=== PATIENT | male | born 1955 | race Caucasian/White ===

== ENCOUNTER 2017-08-16 17:56 | Emergency (ER) | payer MEDICAID, SELFPAY ==
[2017-08-16 17:57] VITALS: BP 156/94; PULSE 80; RESP 16; TEMP 36.7; O2SAT 96; BMI 33.3
--- NOTE | 2017-08-16 18:30 | RAD_ITS ---
XR Chest 2 Views INDICATION: BILAT LEG PAIN FOR THE PAST 2 YEARS AND HAS HAD ON AND OFF ISSUES WITH RT TESTICLE SWELLING. DAUGHTER STATES HE HAS ALL THE SX OF PHEOCHROMOCYTOMA (SHE WAS DIAGNOSED WITH IT RECENTLY, UNSURE IF GENETIC) COMPARISON: None FINDINGS: Heart size and pulmonary vascularity are within normal limits. The lungs appear mildly hyperinflated with coarsened interstitial markings. There is no evidence of focal air space consolidation or pleural effusion. Osseous structures are grossly unremarkable.. RAD/Chest PA and Lateral IMPRESSION: COPD. No radiographic evidence of acute intrathoracic disease. at 1954 Reported and signed by: Suly Up MD Electronically Signed: Suly Up MD at 18:50 EST Tel , Service support ,
--- NOTE | 2017-08-16 18:31 | EKG12_ITS ---
Test Reason : GEN ILLESS Blood Pressure : / mmHG Vent. Rate : 071 BPM Atrial Rate : 071 BPM P-R Int : 154 ms QRS Dur : 092 ms QT Int : 392 ms P-R-T Axes : 073 045 061 degrees QTc Int : 425 ms Normal sinus rhythm Normal ECG Confirmed by DL RENE, PILLO ([id number]), telegraph editor CORY RETANA ([id number]) on 08/19/2017 1:51:14 PM Referred By: JOSE MIGUEL Confirmed By:PILLO LIZAMA MD
--- NOTE | 2017-08-16 18:34 | ED.DCSUM_ITS ---
- ER Visit Summary Date of Service: 08/16/17 Chief Complaint: Bilateral leg swelling History of Present Illness: The patient is a 61 M he states that he has had bilateral leg swelling for years. He is to have a physician in [place] he is moving the [place] he is to get a new physician. He denies any history of cardiac disease. He denies any shortness of breath. Denies any kidney disease. Physical Examination: Well-appearing older male. Vital signs are stable afebrile. Pulse ox 96% on room air no signs of hypoxia. H EENT exam unremarkable. Neck nontender no JVD. Lungs clear to auscultation bilaterally. Heart regular rhythm no murmur. Abdomen soft and nontender. No organomegaly or masses. Normal bowel sounds. No peritoneal signs. He is moving all 4 extremities. They are neurovascularly intact. He does have 1+ pitting edema in both lower extremities. Equal and symmetrical. Calves are nontender no cords. Doubt any focal motor deficits. Test Results: X-ray AP lateral view showed no acute abnormality. Chronic changes. Normal cardiac silhouette. No congestive heart failure. No pleural effusions. EKG sinus rhythm rate is 71 and unchanged from prior EKG from June. CBC shows a white count of 6. H&H 12.4 and 38. BMP normal. Normal gap. Normal creatinine is 0.8. Emergency Department Course and Treatment: Male with acute on chronic pedal edema. Treatment Plan: She will be discharged home. I will see if he is on a diuretic if not I will prescribe him one. He has no primary care physician locally and I will have him follow-up with local physician. On repeat exam there is no change. Patient's daughter is in the room. She strongly believes this is a pheochromocytoma. She has been reading on the Internet. She gave me her cell phone which had information about that on it. I tried to explain to her that I did not feel this was a diagnosis. She became upset and stable condition requested I do further workup which I explained her would not be necessary today in emergency department.. Disposition: discharge Impression: Acute on chronic lower extremity edema This note was generated with [employer] dictation software. It may contain incorrect words, spelling, and punctuation that were not noted in review of the chart prior to signing ED Disposition - Plan for ED Patient: Disposition: Home or Assisted Living Chief Complaint: General Illness Instructions: ED Leg Swelling Bilateral Referrals: Care Physician,No Primary [Primary Care Provider] - Additional Instructions: Elevate legs to decrease swelling.
[2017-08-16 19:07] LABS: Absolute Lymphocyte Count 2.34 X10^3/ul (0.83-4.51); Absolute Neutrophil Count 3.2 X10^3/uL (2.0-7.7); Basophil# 0.02 X10^3/uL; Basophil% 0.3 % (0-1); Eosinophil# 0.38 X10^3/uL; Eosinophils% 5.6 % (0-5); Hematocrit 38.4 % (40-54); Hemoglobin 12.4 g/dl (13.0-16.5); Lymphocyte # 2.34 X10^3/ul (4.0); Lymphocyte % 34.5 % (19-41); Mean Corp Hgb Conc 32.3 g/gl (32-36); Mean Corpuscular Hgb 29.5 pg (27.0-32.0); Mean Corpuscular Volume 91.2 fL (80-94); Mean Platelet Vol. 9.3 fl (6.2-12.0); Monocyte# 0.82 X10^3/uL; Monocyte% 12.1 % (0-10); Neutrophil # 3.21 X10^3/uL (2.7-7.7); Neutrophil % 47.2 % (47-70); Platelet Count 209 K/mm3 (150-450); RBC Distribution Width CV 14.5 % (11.6-14.6); RBC Distribution Width SD 48.3 fl (35.1-43.9); Red Blood Count 4.21 M/mm3 (4.6-6.2); White Blood Count 6.8 K/mm3 (4.4-11.0)
[2017-08-16 19:12] LABS: POSITIVE COUNT NO; POSITIVE DIFFERENTIAL NO; POSITIVE MORPHOLOGY NO
[2017-08-16 19:18] LABS: Anion Gap 7 (5-15); BUN 13 mg/dL (7-18); Calcium,Total 8.2 mg/dL (8.5-10.1); Chloride 109 mmol/L (98-107); Creatinine, Serum 0.87 mg/dL (0.70-1.30); EST Glomerular Filtration Rate 94 mL/min (>60); Est Glom Filt Rate - Afr Amer 114 mL/min (>60); Estimated Creatinine Clearance 86.91 ml/min; Glucose 108 mg/dL (74-106); Potassium 4.1 mmol/L (3.5-5.1); Sodium Level 144 mmol/L (136-145)
--- NOTE | 2017-08-16 19:32 | ED.DEP ---
ED Disposition - Plan for ED Patient: Disposition: Home or Assisted Living Chief Complaint: General Illness Instructions: ED Leg Swelling Bilateral Referrals: Care Physician,No Primary [Primary Care Provider] - Additional Instructions: Elevate legs to decrease swelling.
[2017-08-16] MEDS: HYDROcodone Bitartrate/Apap 5/325 Tablet PO (19:50)
[2017-08-16 19:53] VITALS: PULSE 71; RESP 15; O2SAT 97
--- NOTE | 2017-08-16 20:20 | ED.RN ---
charge nurse was asked to talk to patients family at this time because family was upset with patient care and wanted to speak to the person in charge. Patient has been discharged home at this time and family is refusing to leave. Spoke with doctor who stressed that patient had medical condition known as pheochromocytoma and based on WebMD description the patient has this medical condition and we are not taking his care seriously. Explained to the family patient received lab work, ekg, medication, and xray and the doctor feels the patient is safe to go home and follow up with a primary care doctor. Patient is aware and agrees. Daughter still upset. Daughter given name for logistics loss prevention manager, and patient advocate. Patient is comfortable leaving at this time. advised if condition gets worse to return for follow up care.
--- NOTE | 2017-08-16 20:21 | ED.RN ---
REVIEWING DC INSTRUCTIONS WITH PATIENT. DAUGHTER WAS UPSET BECAUSE MORE TESTING WASN'T BEING DONE TO R/O ILLNESS SHE IS CONVINCED HER FATHER HAS CALLED PHEOCHROMOCYOMA. SHE HAD BEEN OBTAINING INFO ONLINE. DAUGHTER REQUESTING TO SPEAK TO SOMEONE. INFORMED NORTH CHARGE NURSE.
== END 2017-08-16 20:20 | disposition home or self-care (01) ==
PROVIDERS: Emergency Provider Emergency Medicine
DX: R60.0 Localized edema (principal); Z87.891 Personal history of nicotine dependence
CPT/HCPCS: 71046; 80048; 85025; 93005; 99285; A4216

== ENCOUNTER 2017-11-08 20:52 | Observation (INO) | payer MEDICAID, SELFPAY ==
[2017-11-08 20:57] VITALS: PULSE 71; BMI 35.1
[2017-11-08 21:11] VITALS: BMI 35.1
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
[2017-11-08 21:24] VITALS: TEMP 36.7
--- NOTE | 2017-11-08 21:25 | VDLE_ITS ---
Reason For Study: Elevated D-dimer RIGHT LEFT GSV is normal. GSV is normal. CFV is compressible, spontaneous, phasic, CFV is compressible, spontaneous, phasic, competent and demonstrates normal competent, and demonstrates normal augmentation. augmentation. FV is compressible, spontaneous, phasic, FV is compressible, spontaneous, phasic, competent and demonstrates normal competent and demonstrates normal augmentation. augmentation. POP V is compressible, spontaneous, phasic, POP V is compressible, spontaneous, phasic, competent and demonstrates normal competent and demonstrates normal augmentation. augmentation. T/P Trunk is compressible. T/P Trunk is compressible. PTV is compressible. PTV is compressible. RT PerV is compressible. LT PerV is compressible. Procedure Exam performed portable in patient room. A preliminary report was called and/or faxed to Kathy GAXIOLA. Interpretation Summary Deep veins of the lower extremities are bilaterally patent and compressible segmentally. There is no evidence of deep vein thrombosis on either side. Valvular competence appears intact within the proximal deep venous systems bilaterally. The greater saphenous veins appear bilaterally patent and compressible segmentally. Ordering Physician: Wilfrido Eli Performed By: Shruti Kaufman, ANDREY, RVT
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
--- NOTE | 2017-11-08 21:27 | EKG12_ITS ---
Test Reason : CP Blood Pressure : / mmHG Vent. Rate : 063 BPM Atrial Rate : 063 BPM P-R Int : 164 ms QRS Dur : 098 ms QT Int : 398 ms P-R-T Axes : 075 046 057 degrees QTc Int : 407 ms Sinus rhythm with Premature atrial complexes Otherwise normal ECG When compared with ECG of 16-AUG-2017 18:39, Premature atrial complexes are now Present Confirmed by DL RENE, PILLO ([id number]), digital editor CORY RETANA ([id number]) on 11/10/2017 3:21:24 PM Referred By: ELLIS Confirmed By:PILLO LIZAMA MD
[2017-11-08 22:00] VITALS: PULSE 71; RESP 15
[2017-11-08] MEDS: Atorvastatin Calcium 40 MG Tablet PO (22:47)
[2017-11-08] MEDS: Aspirin 81 MG TAB.CHEW 324 MG PO (22:47)
[2017-11-08 23:07] VITALS: BP 166/87; PULSE 74
[2017-11-08] MEDS: Metoprolol Tartrate 25 MG Tablet 12.5 MG PO (23:07)
[2017-11-09] VITALS (16 sets, daily range): BP systolic 108–149; BP diastolic 57–82; PULSE 62–83; RESP 15–18; TEMP 36.7–36.9; O2SAT 94–100
[2017-11-09 04:18] LABS: Hematocrit 39.9 % (40-54); Hemoglobin 12.8 g/dl (13.0-16.5); Mean Corp Hgb Conc 32.1 g/gl (32-36); Mean Corpuscular Hgb 28.6 pg (27.0-32.0); Mean Corpuscular Volume 89.3 fL (80-94); Mean Platelet Vol. 9.6 fl (6.2-12.0); Platelet Count 192 K/mm3 (150-450); RBC Distribution Width CV 13.6 % (11.6-14.6); RBC Distribution Width SD 43.9 fl (35.1-43.9); Red Blood Count 4.47 M/mm3 (4.6-6.2); White Blood Count 7.3 K/mm3 (4.4-11.0)
[2017-11-09 04:19] LABS: Scan Indicated on CBC? Y/N NO
[2017-11-09 04:22] LABS: Prothrombin Time (Protime)PT. 13.6 SECONDS (11.7-14.9)
[2017-11-09 04:33] LABS: Partial Thromboplast Time 30.9 Seconds (24.1-36.2)
[2017-11-09 04:36] LABS: D-Dimer Quantitative (DVT/PE) 0.61 FEU/ug/m (0.27-0.49)
[2017-11-09 04:52] LABS: BNP,B-Type NATRIURETIC PEPTIDE 35.4 pg/mL (0-100)
[2017-11-09 04:56] LABS: AST(SGOT) 24 U/L (15-37); Alanine Aminotransfer ALT/SGPT 35 U/L (16-61); Albumin, Serum 3.3 g/dL (3.2-5.0); Alkaline Phosphatase 78 U/L (45-117); Anion Gap 8 (5-15); BUN 14 mg/dL (7-18); BUN/Creat Ratio 16.1 RATIO (10-20); Calcium,Total 8.4 mg/dL (8.5-10.1); Chloride 107 mmol/L (98-107); Cholesterol 132 mg/dL (200); Creatinine, Serum 0.87 mg/dL (0.70-1.30); EST Glomerular Filtration Rate 94 mL/min (>60); Est Glom Filt Rate - Afr Amer 113 mL/min (>60); Estimated Creatinine Clearance 88.57 ml/min; Globulin 3.3 g/dL (2.2-4.2); Glucose 91 mg/dL (74-106); High Density Lipoprotein 48 mg/dL; Potassium 3.9 mmol/L (3.5-5.1); Protein, Total 6.6 g/dL (6.4-8.2); Sodium Level 145 mmol/L (136-145); Thyroid Stim Hormone (TSH) 5.35 uIU/mL (0.358-3.74); Triglycerides 78 mg/dL; Very Low Density Lipoprotein 16 mg/dL (5-40)
--- NOTE | 2017-11-09 05:17 | NURSING ---
DR SANCHEZ AWARE OF AM LAB RESULTS: D DIMER 0.61, TSH 5.35.
[2017-11-09] MEDS: 0.9% NaCl Peripheral Flush Adult/Peds IV ×2 (05:52→13:12)
[2017-11-09] MEDS: Aspirin E.C. 81 MG Tablet PO (05:52)
[2017-11-09] MEDS: Lisinopril 10 MG Tablet PO (05:52)
--- NOTE | 2017-11-09 05:55 | ECHOD_ITS ---
Reason For Study: CHEST PAIN Procedure This was a 2D Doppler, Color Flow transthoracic echocardiogram. Contrast injection was performed. The study was technically difficult. Exam performed portable in patient room. Left Ventricle Normal LV size. Left ventricular systolic function is normal. Segmental dysfunction with preserved ejection fraction (see wall motion). Transmitral diastolic flow velocities suggest mild (stage 1) diastolic dysfunction (reversed pattern). Mid-Posterior: Mildly hypokinetic. Mid-Inferior: Hypokinetic. Infero-Basal: Hypokinetic. Posterior-Basal: Hypokinetic. The rest of the wall segments are normal. Right Ventricle Normal RV size. Normal systolic function. Atria Normal left atrium. Normal right atrium. Mitral Valve Normal mitral valve. Tricuspid Valve Normal tricuspid valve. Mild (1+) tricuspid valve insufficiency. Pulmonary artery systolic pressure is 24 mmHg. Aortic Valve Normal aortic valve. Pulmonic Valve Normal pulmonic valve. Great Vessels Normal aortic root. The pulmonary artery is normal size. Normal inferior vena cava. Pericardium/Pleural No pericardial effusion. Medication Diluted definity 4ml given slow IV push to enhance endocardial definition. MMode/2D Measurements & Calculations LVIDd: 5.4 cm IVSd: 0.86 cm Ao root diam: 3.3 cm LVIDs: 4.1 cm LVPWd: 1.1 cm LA dimension: 3.3 cm RVDd: 4.0 cm FS: 24.6 % LAV(MOD-bp): 46.0 ml EDV(MOD-sp4): 184.8 ml EDV(MOD-sp2): 114.8 ml LAV(MOD-bp) Indexed: 20.3 ml/m2 ESV(MOD-sp4): 59.8 ml EF(MOD-sp2): 41.6 % LAV(MOD-sp2): 66.6 ml EF(MOD-sp4): 67.7 % LAV(MOD-sp4): 30.8 ml SV(MOD-sp4): 125.0 ml SV(MOD-sp2): 47.7 ml LA A4 area: 12.8 cm2 RA A4 area: 14.8 cm2 Doppler Measurements & Calculations MV E max lucio: 63.3 cm/sec Lat Peak E' Lucio: 9.8 cm/sec Med Peak E' Lucio: 8.0 cm/sec MV A max lucio: 83.5 cm/sec E/E' lat: 6.4 E/E' med: 7.9 MV E/A: 0.76 Ao V2 max: 112.9 cm/sec LV V1 max: 95.6 cm/sec TR max lucio: 223.6 cm/sec Ao max P.1 mmHg LV V1 max P.7 mmHg TR max P.0 mmHg Interpretation Summary Normal LV size. Left ventricular systolic function is normal. Segmental dysfunction with preserved ejection fraction (see wall motion). Transmitral diastolic flow velocities suggest mild (stage 1) diastolic dysfunction (reversed pattern). Contrast injection was performed. Ordering Physician: Wilfrido Eli Performed By: Patty Brooks RDCS, RVT
--- NOTE | 2017-11-09 05:55 | EKG12_ITS ---
Test Reason : AM EKG Blood Pressure : / mmHG Vent. Rate : 064 BPM Atrial Rate : 064 BPM P-R Int : 154 ms QRS Dur : 098 ms QT Int : 408 ms P-R-T Axes : 069 046 057 degrees QTc Int : 420 ms Normal sinus rhythm Normal ECG When compared with ECG of 08-NOV-2017 21:32, MANUAL COMPARISON REQUIRED, DATA IS UNCONFIRMED Confirmed by DL RENE, PILLO ([id number]), industrial editor CORY RETANA ([id number]) on 11/10/2017 3:18:53 PM Referred By: WENDY Confirmed By:PILLO LIZAMA MD
--- NOTE | 2017-11-09 07:09 | PCM.PROGNOTE ---
Patient Problems: Active and Suspected Problems Non-compliant behavior (Acute) COPD (chronic obstructive pulmonary disease) (Acute) Edema (Acute) Chest pain (Acute) Subjective: The patient is a 62-year-old male with a past medical history of COPD, non-compliance with meds/follow up and hypertension who was transferred to [facility] on 11/08/2017 from [place] emergency room with a complaint of chest pain and leg swelling. He related to the night hospitalist that he has had chest pain for several years. Vital signs at admission were temperature 98, pulse rate 62-74, blood pressure 166/87 respiratory rate of 15 with pulse ox of 95% on room air. CBC was significant for a mildly decreased hemoglobin at 12.8 with normochromic normocytic indices and a normal RDW. A d-dimer was increased at 0.61. BMP was unremarkable. Troponin was less than 0.015 and TSH was mildly increased at 5.35. - Physical Exam Vital Signs Temp Pulse Resp BP Pulse Ox 98.4 F 63 15 108/58 L 94 11/09/17 03:00 11/09/17 05:43 11/09/17 05:43 11/09/17 05:43 11/09/17 05:43 Oxygen Delivery Method Room Air Weight: 244 lb 14.937 oz Body Mass Index (BMI) 35.1 Intake and Output for Last 24 Hours 11/07/17 11/08/17 11/09/17 23:59 23:59 23:59 Intake Total 300 / 300 Balance 300 / 300 Laboratory Tests Past 24 Hrs 11/08/17 11/09/17 11/09/17 21:45 00:32 03:38 WBC 7.3 RBC 4.47 L Hgb 12.8 L Hct 39.9 L MCV 89.3 MCH 28.6 MCHC 32.1 RDW 13.6 RDW Differential 43.9 Plt Count 192 MPV 9.6 PT INR APTT D-Dimer Quant (PE/DVT) Sodium Potassium Chloride Carbon Dioxide Anion Gap BUN Creatinine Estim Creat Clear Calc Est GFR (MDRD) Af Amer Est GFR (MDRD) Non-Af BUN/Creatinine Ratio Glucose Calcium Total Bilirubin AST ALT Alkaline Phosphatase Troponin I < 0.015 < 0.015 B-Natriuretic Peptide Total Protein Albumin Globulin Albumin/Globulin Ratio Triglycerides Cholesterol LDL Cholesterol VLDL Cholesterol HDL Cholesterol TSH 11/09/17 11/09/17 11/09/17 03:38 03:38 03:38 WBC RBC Hgb Hct MCV MCH MCHC RDW RDW Differential Plt Count MPV PT 13.6 INR 1.0 APTT 30.9 D-Dimer Quant (PE/DVT) 0.61 H* Sodium Cancelled Potassium Cancelled Chloride Cancelled Carbon Dioxide Cancelled Anion Gap Cancelled BUN Cancelled Creatinine Cancelled Estim Creat Clear Calc Cancelled Est GFR (MDRD) Af Amer Cancelled Est GFR (MDRD) Non-Af Cancelled BUN/Creatinine Ratio Cancelled Glucose Cancelled Calcium Cancelled Total Bilirubin Cancelled AST Cancelled ALT Cancelled Alkaline Phosphatase Cancelled Troponin I B-Natriuretic Peptide 35.4 Total Protein Cancelled Albumin Cancelled Globulin Cancelled Albumin/Globulin Ratio Cancelled Triglycerides Cancelled Cholesterol Cancelled LDL Cholesterol Cancelled VLDL Cholesterol Cancelled HDL Cholesterol Cancelled TSH Cancelled 11/09/17 03:38 WBC RBC Hgb Hct MCV MCH MCHC RDW RDW Differential Plt Count MPV PT INR APTT D-Dimer Quant (PE/DVT) Sodium 145 Potassium 3.9 Chloride 107 Carbon Dioxide 30.0 Anion Gap 8 BUN 14 Creatinine 0.87 Estim Creat Clear Calc 88.57 Est GFR (MDRD) Af Amer 113 Est GFR (MDRD) Non-Af 94 BUN/Creatinine Ratio 16.1 Glucose 91 Calcium 8.4 L Total Bilirubin 0.20 AST 24 ALT 35 Alkaline Phosphatase 78 Troponin I < 0.015 B-Natriuretic Peptide Total Protein 6.6 Albumin 3.3 Globulin 3.3 Albumin/Globulin Ratio 1.0 Triglycerides 78 Cholesterol 132 LDL Cholesterol 68 VLDL Cholesterol 16 HDL Cholesterol 48 TSH 5.35 H Medical Necessity - Tobacco Use Smoking Status: Current every day smoker Tobacco Use: Cigarettes Assessment/Plan Active and Suspected Problems Non-compliant behavior (Acute) COPD (chronic obstructive pulmonary disease) (Acute) Edema (Acute) Chest pain (Acute)
--- NOTE | 2017-11-09 07:13 | CT_ITS ---
STUDY: CTA CHEST REASON FOR EXAM: Male, 62 years old. Elevated d-dimer. Chest pain. Swelling of both lower extremities. RADIATION DOSAGE (If Supplied By Facility): CTDIvol = ( 16.67 ) mGy, DLP = ( 790.68 ) mGycm TECHNIQUE: The examination was performed with the intravenous administration of 100 ml of Isovue 370 contrast material. Post-processing of the angiographic images was performed, with multiplanar reformation and 3D reconstruction. Individualized dose optimization techniques were used for this CT. COMPARISON: None. FINDINGS: Normal enhancement of the main pulmonary artery and right and left pulmonary arteries. Normal enhancement of the bilateral peripheral pulmonary arteries. There is no demonstrated pulmonary embolism. Normal thoracic aorta and visualized great vessels. There is no demonstrated aortic dissection. Normal heart and pericardium. Normal mediastinum. Normal hilar regions. Normal visualized trachea and bronchi. Hyperinflation. Diffuse emphysematous changes with cystic changes worse in the upper lobes. Focal area of scarring and/or atelectasis in the lingular segment of the left upper lobe with thickening of the left major fissure. Calcified granuloma in the right lower lobe. Normal pleura. Normal chest wall structures. There are degenerative changes of thoracic spine. Small hiatal hernia. CT/CTA Chest W/WO Contrast IMPRESSION: Hyperinflation. Emphysematous changes. Findings suggest probable scarring in the lingular segment of the left upper lobe. There is no evidence of pulmonary embolism. Electronically Signed: Jori Segura MD at 9:12 EDT Tel [phone], Service support ,
--- NOTE | 2017-11-09 07:14 | PN_ITS ---
Patient Problems: Active and Suspected Problems Non-compliant behavior (Acute) COPD (chronic obstructive pulmonary disease) (Acute) Edema (Acute) Chest pain (Acute) Subjective: The patient is a 62-year-old male with a past medical history of COPD, non- compliance with meds/follow up and hypertension who was transferred to [facility] on 11/08/2017 from [place] emergency room with a complaint of chest pain and leg swelling. He related to the night hospitalist that he has had chest pain for several years. Vital signs at admission were temperature 98 , pulse rate 62-74, blood pressure 166/87 respiratory rate of 15 with pulse ox of 95% on room air. CBC was significant for a mildly decreased hemoglobin at 12.8 with normochromic normocytic indices and a normal RDW. A d-dimer was increased at 0.61. BMP was unremarkable. Troponin was less than 0.015 and TSH was mildly increased at 5.35. - Physical Exam Vital Signs Temp Pulse Resp BP Pulse Ox 98.4 F 63 15 108/58 L 94 11/09/17 03:00 11/09/17 05:43 11/09/17 05:43 11/09/17 05:43 11/09/17 05:43 Oxygen Delivery Method Room Air Weight: 244 lb 14.937 oz Body Mass Index (BMI) 35.1 Intake and Output for Last 24 Hours 11/07/17 11/08/17 11/09/17 23:59 23:59 23:59 Intake Total 300 / 300 Balance 300 / 300 Laboratory Tests Past 24 Hrs 11/08/17 11/09/17 11/09/17 21:45 00:32 03:38 WBC 7.3 RBC 4.47 L Hgb 12.8 L Hct 39.9 L MCV 89.3 MCH 28.6 MCHC 32.1 RDW 13.6 RDW Differential 43.9 Plt Count 192 MPV 9.6 PT INR APTT D-Dimer Quant (PE/DVT) Sodium Potassium Chloride Carbon Dioxide Anion Gap BUN Creatinine Estim Creat Clear Calc Est GFR (MDRD) Af Amer Est GFR (MDRD) Non-Af BUN/Creatinine Ratio Glucose Calcium Total Bilirubin AST ALT Alkaline Phosphatase Troponin I < 0.015 < 0.015 B-Natriuretic Peptide Total Protein Albumin Globulin Albumin/Globulin Ratio Triglycerides Cholesterol LDL Cholesterol VLDL Cholesterol HDL Cholesterol TSH 11/09/17 11/09/17 11/09/17 03:38 03:38 03:38 WBC RBC Hgb Hct MCV MCH MCHC RDW RDW Differential Plt Count MPV PT 13.6 INR 1.0 APTT 30.9 D-Dimer Quant (PE/DVT) 0.61 H* Sodium Cancelled Potassium Cancelled Chloride Cancelled Carbon Dioxide Cancelled Anion Gap Cancelled BUN Cancelled Creatinine Cancelled Estim Creat Clear Calc Cancelled Est GFR (MDRD) Af Amer Cancelled Est GFR (MDRD) Non-Af Cancelled BUN/Creatinine Ratio Cancelled Glucose Cancelled Calcium Cancelled Total Bilirubin Cancelled AST Cancelled ALT Cancelled Alkaline Phosphatase Cancelled Troponin I B-Natriuretic Peptide 35.4 Total Protein Cancelled Albumin Cancelled Globulin Cancelled Albumin/Globulin Ratio Cancelled Triglycerides Cancelled Cholesterol Cancelled LDL Cholesterol Cancelled VLDL Cholesterol Cancelled HDL Cholesterol Cancelled TSH Cancelled 11/09/17 03:38 WBC RBC Hgb Hct MCV MCH MCHC RDW RDW Differential Plt Count MPV PT INR APTT D-Dimer Quant (PE/DVT) Sodium 145 Potassium 3.9 Chloride 107 Carbon Dioxide 30.0 Anion Gap 8 BUN 14 Creatinine 0.87 Estim Creat Clear Calc 88.57 Est GFR (MDRD) Af Amer 113 Est GFR (MDRD) Non-Af 94 BUN/Creatinine Ratio 16.1 Glucose 91 Calcium 8.4 L Total Bilirubin 0.20 AST 24 ALT 35 Alkaline Phosphatase 78 Troponin I < 0.015 B-Natriuretic Peptide Total Protein 6.6 Albumin 3.3 Globulin 3.3 Albumin/Globulin Ratio 1.0 Triglycerides 78 Cholesterol 132 LDL Cholesterol 68 VLDL Cholesterol 16 HDL Cholesterol 48 TSH 5.35 H Medical Necessity - Tobacco Use Smoking Status: Current every day smoker Tobacco Use: Cigarettes Assessment/Plan Active and Suspected Problems Non-compliant behavior (Acute) COPD (chronic obstructive pulmonary disease) (Acute) Edema (Acute) Chest pain (Acute)
[2017-11-09] MEDS: Metoprolol Tartrate 25 MG Tablet 12.5 MG PO ×2 (13:12→22:50)
[2017-11-09] MEDS: Acetaminophen 325 MG Tablet 650 MG PO (13:12)
[2017-11-09] MEDS: Furosemide 40 MG/4 ML Vial IV (13:12)
--- NOTE | 2017-11-09 13:17 | STRESSREP ---
Stress Test Report Pharmacologic myocardial perfusion stress test. 62-year-old man with a history of atypical chest pain. Medications Lipitor Lasix Zestril Lopressor. Stress protocol: Resting EKG demonstrates sinus rhythm with a rate of 64 bpm normal intervals and noted resting blood pressure is 172/92 mmHg. 0.4 mg regadenoson was infused per usual protocol followed by rapid intravenous saline flush injection continuous EKG monitoring was performed. The maximum heart rate attained was 89 bpm which was 7% of maximum predicted heart rate. The maximum workload was 1 metabolic equivalent. At rest there were no ST or T-wave changes noted suggest abnormal flow reserve at peak infusion no ST or T-wave changes were noted suggest abnormal flow reserve. The resting blood pressure was 172/92 with a final blood pressure 150/88 mmHg. Myocardial perfusion protocol. 15.0 mCi of technetium 99m sestamibi was injected at rest. 0.4 mg of regadenoson was infused per usual protocol. Peak infusion 45.0 mCi of technetium 99m sestamibi was injected stress images were obtained stress and rest images were reconstructed and compared in the short axis vertical long and horizontal long axis. Gated images were also obtained pre- Perfusion SPECT analysis: Review of the stress images demonstrate normal uptake of tracer noted in the septum anterior wall and lateral wall. There is a large defect noted involving the inferior wall from base to apex. The resting images demonstrate minimal improvement. The above is suggestive of a previous inferior infarct with mild robe-infarct ischemia.There is motion artifact noted as well as GI attenuation artifact and this could account for some of the findings Gated SPECT analysis: The gated ejection fraction is 55%. Conclusion: Pharmacologic myocardial perfusion stress test with evidence of previous inferior infarct Mild inferior ischemia cannot be completely excluded.
--- NOTE | 2017-11-09 13:41 | PN_ITS ---
Patient Problems: Active and Suspected Problems Non-compliant behavior (Acute) COPD (chronic obstructive pulmonary disease) (Acute) Edema (Acute) Chest pain (Acute) Subjective: Pt resting comfortably in bed s/p stress test. He denied having cp or SOB during stress this AM. Denies CP today. He states he did have left anterior chest wall pain without radiation on admission, and that he has been having this intermittently for at least a month. His major concern is the swelling of his legs. He denies hx of blood clots. He denies SOB/wheezing/cough. He is a prior smoker, quit in may but smoked his whole life. He has other complaints including a fluctuant right inguinal hernia and mid lumbar back pain radiating down his right leg. He also has leg pain when walking. - Physical Exam General: Alert, Oriented x3, Cooperative HEENT: Atraumatic, PERRLA, EOMI, Normocephalic Neck: Supple, No JVD, Negative Carotid Bruits Lungs: Clear to auscultation, Normal air movement Cardiovascular: Regular rate, No murmurs Abdomen: Bowel Sounds Present, Soft, Non Tender Extremities: No edema, Capillary Refill Less than 3 Seconds Skin: No rashes, No breakdown Musculoskeletal: No Tenderness to Palpation of Joints or Extremities Neurological: Cranial nerves II-XII grossly intact Psych/Mental Status: Normal Affect, Appropriate, Alert and oriented to time, place, person, mood and affect Vital Signs Temp Pulse Resp BP Pulse Ox 98.2 F 65 18 149/77 H 98 11/09/17 13:10 11/09/17 13:12 11/09/17 13:10 11/09/17 13:10 11/09/17 13:10 Oxygen Delivery Method Room Air Weight: 111.1 kg Body Mass Index (BMI) 35.1 Intake and Output for Last 24 Hours 11/07/17 11/08/17 11/09/17 23:59 23:59 23:59 Intake Total 300 / 300 Balance 300 / 300 Laboratory Tests Past 24 Hrs 11/08/17 11/09/17 11/09/17 21:45 00:32 03:38 WBC 7.3 RBC 4.47 L Hgb 12.8 L Hct 39.9 L MCV 89.3 MCH 28.6 MCHC 32.1 RDW 13.6 RDW Differential 43.9 Plt Count 192 MPV 9.6 PT INR APTT D-Dimer Quant (PE/DVT) Sodium Potassium Chloride Carbon Dioxide Anion Gap BUN Creatinine Estim Creat Clear Calc Est GFR (MDRD) Af Amer Est GFR (MDRD) Non-Af BUN/Creatinine Ratio Glucose Calcium Total Bilirubin AST ALT Alkaline Phosphatase Troponin I < 0.015 < 0.015 B-Natriuretic Peptide Total Protein Albumin Globulin Albumin/Globulin Ratio Triglycerides Cholesterol LDL Cholesterol VLDL Cholesterol HDL Cholesterol TSH Free T4 11/09/17 11/09/17 11/09/17 03:38 03:38 03:38 WBC RBC Hgb Hct MCV MCH MCHC RDW RDW Differential Plt Count MPV PT 13.6 INR 1.0 APTT 30.9 D-Dimer Quant (PE/DVT) 0.61 H* Sodium Cancelled Potassium Cancelled Chloride Cancelled Carbon Dioxide Cancelled Anion Gap Cancelled BUN Cancelled Creatinine Cancelled Estim Creat Clear Calc Cancelled Est GFR (MDRD) Af Amer Cancelled Est GFR (MDRD) Non-Af Cancelled BUN/Creatinine Ratio Cancelled Glucose Cancelled Calcium Cancelled Total Bilirubin Cancelled AST Cancelled ALT Cancelled Alkaline Phosphatase Cancelled Troponin I B-Natriuretic Peptide 35.4 Total Protein Cancelled Albumin Cancelled Globulin Cancelled Albumin/Globulin Ratio Cancelled Triglycerides Cancelled Cholesterol Cancelled LDL Cholesterol Cancelled VLDL Cholesterol Cancelled HDL Cholesterol Cancelled TSH Cancelled Free T4 11/09/17 11/09/17 03:38 03:38 WBC RBC Hgb Hct MCV MCH MCHC RDW RDW Differential Plt Count MPV PT INR APTT D-Dimer Quant (PE/DVT) Sodium 145 Potassium 3.9 Chloride 107 Carbon Dioxide 30.0 Anion Gap 8 BUN 14 Creatinine 0.87 Estim Creat Clear Calc 88.57 Est GFR (MDRD) Af Amer 113 Est GFR (MDRD) Non-Af 94 BUN/Creatinine Ratio 16.1 Glucose 91 Calcium 8.4 L Total Bilirubin 0.20 AST 24 ALT 35 Alkaline Phosphatase 78 Troponin I < 0.015 B-Natriuretic Peptide Total Protein 6.6 Albumin 3.3 Globulin 3.3 Albumin/Globulin Ratio 1.0 Triglycerides 78 Cholesterol 132 LDL Cholesterol 68 VLDL Cholesterol 16 HDL Cholesterol 48 TSH 5.35 H Free T4 0.70 L Medical Necessity - Tobacco Use Smoking Status: Current every day smoker Tobacco Use: Cigarettes Assessment/Plan Active and Suspected Problems Non-compliant behavior (Acute) COPD (chronic obstructive pulmonary disease) (Acute) Edema (Acute) Chest pain (Acute) 1. Chest pain - neg. trop. neg ekg. Questionable stress test. Consult cardiology. Risk factors include age, htn, smoking hx, obesity. Continue [place], bb , asa. LDL at goal. D dimer elevated but CTA negative. Echocardiogram pending. 2. Hypothyroidism - start synthroid 3. LE edema - suspect PVD. BNP negative. LE venous duplex negative. DC IV lasix. [place] wrap. Start low dose HCTZ. 4. Nicotine abuse - in remission 5. Obesity - dietary consult. 6. Mild normocytic anemia - trend. 7. Htn - started on multiple agents this admission. Trend. DVT ppx: lovenox DC planning: cardiology consult pending for abnormal stress test. This patient was seen by Wander Kuo PA-C under the supervision of Doctor Lozano.
[2017-11-09] MEDS: Enoxaparin 40 MG/0.4 ML Syringe SC (17:48)
--- NOTE | 2017-11-09 18:11 | PCM.CONS.C ---
Reason for Consult Date of Consultation: 11/09/17 Reason for Consultation: Chest discomfort and abnormal stress test History of Present Illness: The patient is a 62-year-old male with a past medical history of COPD, non-compliance with meds/follow up and hypertension who was transferred to [facility] on 11/08/2017 from [place] emergency room with a complaint of chest pain and leg swelling. He related to the night hospitalist that he has had chest pain for several years. Vital signs at admission were temperature 98, pulse rate 62-74, blood pressure 166/87 respiratory rate of 15 with pulse ox of 95% on room air. CBC was significant for a mildly decreased hemoglobin at 12.8 with normochromic normocytic indices and a normal RDW. A d-dimer was increased at 0.61. BMP was unremarkable. Troponin was less than 0.015 and TSH was mildly increased at 5.35. He was admitted to the telemetry unit and underwent a pharmacologic myocardial perfusion stress test which demonstrated evidence of previous inferior myocardial infarction with mild reversibility suggesting ischemia. He did have significant GI attenuation artifact as well as motion artifact and this could potentially account for the findings. On the basis of the above however cardiology was called to evaluate him. [] Past Medical History Allergies/Adverse Reactions: Allergies No Known Allergies Allergy (Verified 11/08/17 21:21) Home Medications: Ambulatory Orders Medication Instructions Recorded NK [NK] 08/16/17 Past Medical History (Chronic Problems): Chronic Problems HTN (hypertension) (Chronic) Surgical History: no surgical history Psychiatric History: No pertinent psych hx Lives: Alone Smoking Status: Current every day smoker Tobacco Use: Cigarettes Alcohol: None Drugs: None Review of Systems - Review of Systems General: Denies: Fever, Night Sweats, Fatigue Cardiovascular: Reports: Chest Discomfort, Chest Discomfort at Rest, Chest Discomfort with Exertion. Denies: Shortness of Breath, Orthopnea, PND, Peripheral Edema, Palpitations, Lightheadedness, Dizziness, Near Syncope, Syncope Respiratory: Denies: Cough, Sputum Production, Hemoptysis Gastrointestinal: Denies: Hematemesis, Hematochezia, Melena Genitourinary: Denies: Dysuria, Hematuria Skin: Denies: Rash Subjectve: Middle-aged gentleman in no apparent distress Objective: Vital Signs Temp Pulse Resp BP Pulse Ox 98.0 F 68 18 134/73 H 99 11/09/17 13:40 11/09/17 16:54 11/09/17 13:40 11/09/17 13:40 11/09/17 13:40 Oxygen Delivery Method Room Air Weight: 244 lb 14.937 oz Body Mass Index (BMI) 35.1 Intake and Output for Last 24 Hours 11/07/17 11/08/17 11/09/17 23:59 23:59 23:59 Intake Total 300 / 300 Balance 300 / 300 General: Awake, Alert, Oriented x 3 HEENT: PERRL, EOMI, Sclera Non Icteric Neck: Supple, Good ROM, No Lymph Node Enlargement Lungs: Clear to auscultation Cardiovascular: Regular Rhythm, Normal S1, Normal S2, No Murmurs, No Rubs, No Gallops Vascular: No Carotid Bruits, Normal Femoral Pulses, Normal Radial Pulses, Normal Dorsalis Pedal Pulse, Normal Posterior Tibial Pulses Abdomen: Bowel Sounds Present, Soft, Non Tender, No HSM, No Organomegaly Extremities: No Cyanosis, No Clubbing, No edema Neurological: No Focal Motor or Sensory Deficit 11/08/17 21:45: Troponin I < 0.015 11/09/17 00:32: Troponin I < 0.015 11/09/17 03:38: WBC 7.3, RBC 4.47 L, Hgb 12.8 L, Hct 39.9 L, MCV 89.3, MCH 28.6, MCHC 32.1, RDW 13.6, RDW Differential 43.9, Plt Count 192, MPV 9.6 11/09/17 03:38: PT 13.6, INR 1.0, APTT 30.9, D-Dimer Quant (PE/DVT) 0.61 H* 11/09/17 03:38: Sodium Cancelled, Potassium Cancelled, Chloride Cancelled, Carbon Dioxide Cancelled, Anion Gap Cancelled, BUN Cancelled, Creatinine Cancelled, Est GFR (MDRD) Af Amer Cancelled, Est GFR (MDRD) Non-Af Cancelled, BUN/Creatinine Ratio Cancelled, Glucose Cancelled, Calcium Cancelled, Total Bilirubin Cancelled, Triglycerides Cancelled, Cholesterol Cancelled, LDL Cholesterol Cancelled, VLDL Cholesterol Cancelled, HDL Cholesterol Cancelled 11/09/17 03:38: B-Natriuretic Peptide 35.4 11/09/17 03:38: Sodium 145, Potassium 3.9, Chloride 107, Carbon Dioxide 30.0, Anion Gap 8, BUN 14, Creatinine 0.87, Est GFR (MDRD) Af Amer 113, Est GFR (MDRD) Non-Af 94, BUN/Creatinine Ratio 16.1, Glucose 91, Calcium 8.4 L, Total Bilirubin 0.20, Troponin I < 0.015, Triglycerides 78, Cholesterol 132, LDL Cholesterol 68, VLDL Cholesterol 16, HDL Cholesterol 48 Rhythm: EKG: Normal sinus rhythm with a rate of 64 bpm Assessment/Plan 1. Chest discomfort with abnormal stress test. He presents with chest discomfort which is somewhat atypical but with an abnormal stress test. The stress test demonstrates evidence of previous infarct with possible mild ischemia. My recommendation at this time based on the referral from the hospitalist will be to proceed with a cardiac catheterization to make sure there is no undocumented previous coronary artery disease. Depending on the findings further recommendations will then be made. He does have wall motion abnormalities noted on his echocardiogram which may corroborate the above stress test. 2. Hypertension. His blood pressure appears to be under fair control and we will continue managing him aggressively. He will continue for now on his beta-leatha diuretic as well as the [place] inhibitor. 3. Hyperlipidemia risk factor modification His most recent lipid profile on his high intensity statin demonstrates a total cholesterol 132, HDL of 48 and LDL of 68. We will continue to follow the above closely. Thank you for allowing me to participate in the care of your patient. Please don't hesitate to call if any issues arise
--- NOTE | 2017-11-09 18:15 | CON.PCM_ITS ---
Reason for Consult Date of Consultation: 11/09/17 Reason for Consultation: Chest discomfort and abnormal stress test History of Present Illness: The patient is a 62-year-old male with a past medical history of COPD, non- compliance with meds/follow up and hypertension who was transferred to [facility] on 11/08/2017 from [place] emergency room with a complaint of chest pain and leg swelling. He related to the night hospitalist that he has had chest pain for several years. Vital signs at admission were temperature 98 , pulse rate 62-74, blood pressure 166/87 respiratory rate of 15 with pulse ox of 95% on room air. CBC was significant for a mildly decreased hemoglobin at 12.8 with normochromic normocytic indices and a normal RDW. A d-dimer was increased at 0.61. BMP was unremarkable. Troponin was less than 0.015 and TSH was mildly increased at 5.35. He was admitted to the telemetry unit and underwent a pharmacologic myocardial perfusion stress test which demonstrated evidence of previous inferior myocardial infarction with mild reversibility suggesting ischemia. He did have significant GI attenuation artifact as well as motion artifact and this could potentially account for the findings. On the basis of the above however cardiology was called to evaluate him. [] Past Medical History Allergies/Adverse Reactions: Allergies No Known Allergies Allergy (Verified 11/08/17 21:21) Home Medications: Ambulatory Orders Medication Instructions Recorded NK [NK] 08/16/17 Past Medical History (Chronic Problems): Chronic Problems HTN (hypertension) (Chronic) Surgical History: no surgical history Psychiatric History: No pertinent psych hx Lives: Alone Smoking Status: Current every day smoker Tobacco Use: Cigarettes Alcohol: None Drugs: None Review of Systems - Review of Systems General: Denies: Fever, Night Sweats, Fatigue Cardiovascular: Reports: Chest Discomfort, Chest Discomfort at Rest, Chest Discomfort with Exertion. Denies: Shortness of Breath, Orthopnea, PND, Peripheral Edema, Palpitations, Lightheadedness, Dizziness, Near Syncope, Syncope Respiratory: Denies: Cough, Sputum Production, Hemoptysis Gastrointestinal: Denies: Hematemesis, Hematochezia, Melena Genitourinary: Denies: Dysuria, Hematuria Skin: Denies: Rash Subjectve: Middle-aged gentleman in no apparent distress Objective: Vital Signs Temp Pulse Resp BP Pulse Ox 98.0 F 68 18 134/73 H 99 11/09/17 13:40 11/09/17 16:54 11/09/17 13:40 11/09/17 13:40 11/09/17 13:40 Oxygen Delivery Method Room Air Weight: 244 lb 14.937 oz Body Mass Index (BMI) 35.1 Intake and Output for Last 24 Hours 11/07/17 11/08/17 11/09/17 23:59 23:59 23:59 Intake Total 300 / 300 Balance 300 / 300 General: Awake, Alert, Oriented x 3 HEENT: PERRL, EOMI, Sclera Non Icteric Neck: Supple, Good ROM, No Lymph Node Enlargement Lungs: Clear to auscultation Cardiovascular: Regular Rhythm, Normal S1, Normal S2, No Murmurs, No Rubs, No Gallops Vascular: No Carotid Bruits, Normal Femoral Pulses, Normal Radial Pulses, Normal Dorsalis Pedal Pulse, Normal Posterior Tibial Pulses Abdomen: Bowel Sounds Present, Soft, Non Tender, No HSM, No Organomegaly Extremities: No Cyanosis, No Clubbing, No edema Neurological: No Focal Motor or Sensory Deficit 11/08/17 21:45: Troponin I < 0.015 11/09/17 00:32: Troponin I < 0.015 11/09/17 03:38: WBC 7.3, RBC 4.47 L, Hgb 12.8 L, Hct 39.9 L, MCV 89.3, MCH 28.6 , MCHC 32.1, RDW 13.6, RDW Differential 43.9, Plt Count 192, MPV 9.6 11/09/17 03:38: PT 13.6, INR 1.0, APTT 30.9, D-Dimer Quant (PE/DVT) 0.61 H* 11/09/17 03:38: Sodium Cancelled, Potassium Cancelled, Chloride Cancelled, Carbon Dioxide Cancelled, Anion Gap Cancelled, BUN Cancelled, Creatinine Cancelled, Est GFR (MDRD) Af Amer Cancelled, Est GFR (MDRD) Non-Af Cancelled, BUN/Creatinine Ratio Cancelled, Glucose Cancelled, Calcium Cancelled, Total Bilirubin Cancelled, Triglycerides Cancelled, Cholesterol Cancelled, LDL Cholesterol Cancelled, VLDL Cholesterol Cancelled, HDL Cholesterol Cancelled 11/09/17 03:38: B-Natriuretic Peptide 35.4 11/09/17 03:38: Sodium 145, Potassium 3.9, Chloride 107, Carbon Dioxide 30.0, Anion Gap 8, BUN 14, Creatinine 0.87, Est GFR (MDRD) Af Amer 113, Est GFR (MDRD ) Non-Af 94, BUN/Creatinine Ratio 16.1, Glucose 91, Calcium 8.4 L, Total Bilirubin 0.20, Troponin I < 0.015, Triglycerides 78, Cholesterol 132, LDL Cholesterol 68, VLDL Cholesterol 16, HDL Cholesterol 48 Rhythm: EKG: Normal sinus rhythm with a rate of 64 bpm Assessment/Plan 1. Chest discomfort with abnormal stress test. He presents with chest discomfort which is somewhat atypical but with an abnormal stress test. The stress test demonstrates evidence of previous infarct with possible mild ischemia. My recommendation at this time based on the referral from the hospitalist will be to proceed with a cardiac catheterization to make sure there is no undocumented previous coronary artery disease. Depending on the findings further recommendations will then be made. He does have wall motion abnormalities noted on his echocardiogram which may corroborate the above stress test. 2. Hypertension. His blood pressure appears to be under fair control and we will continue managing him aggressively. He will continue for now on his beta-leatha diuretic as well as the [place] inhibitor. 3. Hyperlipidemia risk factor modification His most recent lipid profile on his high intensity statin demonstrates a total cholesterol 132, HDL of 48 and LDL of 68. We will continue to follow the above closely. Thank you for allowing me to participate in the care of your patient. Please don't hesitate to call if any issues arise
[2017-11-09] MEDS: 0.9% Normal Saline 1,000 ML 15 ML IV (18:33)
[2017-11-09] MEDS: Clopidogrel Bisulfate 300 MG Tablet PO (18:33)
[2017-11-09] MEDS: Atorvastatin Calcium 40 MG Tablet PO (22:50)
[2017-11-10] VITALS (14 sets, daily range): BP systolic 101–148; BP diastolic 51–88; PULSE 59–72; RESP 16; TEMP 36.6–36.7; O2SAT 94–96
--- NOTE | 2017-11-10 05:55 | EKG12_ITS ---
Test Reason : AM Blood Pressure : / mmHG Vent. Rate : 064 BPM Atrial Rate : 064 BPM P-R Int : 164 ms QRS Dur : 092 ms QT Int : 404 ms P-R-T Axes : 068 043 052 degrees QTc Int : 416 ms Normal sinus rhythm Normal ECG Confirmed by LEE RENE, TIFFANIE ([id number]), editorial manager CORY RETANA ([id number] on 11/18/2017 3:22:27 PM Referred By: GILMER Confirmed By:TIFFANIE HOWARD MD
[2017-11-10 06:02] LABS: Absolute Lymphocyte Count 2.39 X10^3/ul (0.83-4.51); Absolute Neutrophil Count 3.6 X10^3/uL (2.0-7.7); Basophil# 0.02 X10^3/uL; Basophil% 0.3 % (0-1); Eosinophil# 0.28 X10^3/uL; Hematocrit 39.9 % (40-54); Hemoglobin 13.4 g/dl (13.0-16.5); Lymphocyte # 2.39 X10^3/ul (4.0); Lymphocyte % 34.1 % (19-41); Mean Corp Hgb Conc 33.6 g/gl (32-36); Mean Corpuscular Hgb 30.2 pg (27.0-32.0); Mean Corpuscular Volume 89.9 fL (80-94); Mean Platelet Vol. 9.9 fl (6.2-12.0); Monocyte# 0.65 X10^3/uL; Monocyte% 9.3 % (0-10); Neutrophil # 3.62 X10^3/uL (2.7-7.7); Neutrophil % 51.6 % (47-70); Platelet Count 199 K/mm3 (150-450); RBC Distribution Width CV 13.4 % (11.6-14.6); RBC Distribution Width SD 43.9 fl (35.1-43.9); Red Blood Count 4.44 M/mm3 (4.6-6.2)
[2017-11-10 06:03] LABS: POSITIVE COUNT NO; POSITIVE DIFFERENTIAL NO; POSITIVE MORPHOLOGY NO
[2017-11-10 06:07] LABS: International Normalized Ratio 1.1; Prothrombin Time (Protime)PT. 13.7 SECONDS (11.7-14.9)
[2017-11-10 06:09] LABS: Partial Thromboplast Time 34.3 Seconds (24.1-36.2)
[2017-11-10] MEDS: Aspirin E.C. 81 MG Tablet PO (06:19)
[2017-11-10] MEDS: Metoprolol Tartrate 25 MG Tablet 12.5 MG PO (06:19)
[2017-11-10] MEDS: Levothyroxine 50 MCG Tablet PO (06:19)
[2017-11-10] MEDS: Lisinopril 10 MG Tablet PO ×2 (06:22→10:11)
[2017-11-10] MEDS: Clopidogrel Bisulfate 75 MG Tablet PO (06:24)
[2017-11-10 06:40] LABS: Anion Gap 7 (5-15); BUN 13 mg/dL (7-18); BUN/Creat Ratio 10.4 RATIO (10-20); Calcium,Total 8.6 mg/dL (8.5-10.1); Chloride 106 mmol/L (98-107); Creatinine, Serum 1.25 mg/dL (0.70-1.30); EST Glomerular Filtration Rate 62 mL/min (>60); Est Glom Filt Rate - Afr Amer 75 mL/min (>60); Estimated Creatinine Clearance 61.64 ml/min; Glucose 88 mg/dL (74-106); Potassium 4.1 mmol/L (3.5-5.1); Sodium Level 144 mmol/L (136-145)
--- NOTE | 2017-11-10 07:27 | NURSING ---
Called report down to KHALIDA Hewitt in [employer] at this time.
--- NOTE | 2017-11-10 08:33 | PN.CARD_ITS ---
Subjectve: Patient seen and evaluated and underwent cardiac catheterization today Objective: Vital Signs Temp Pulse Resp BP Pulse Ox 97.9 F 62 16 117/72 94 11/10/17 06:12 11/10/17 06:58 11/10/17 06:12 11/10/17 06:12 11/10/17 06:12 Oxygen Delivery Method Room Air Weight: 244 lb 14.937 oz Body Mass Index (BMI) 35.1 Intake and Output for Last 24 Hours 11/08/17 11/09/17 11/10/17 23:59 23:59 23:59 Intake Total 540 / 540 240 / 240 Balance 540 / 540 240 / 240 General: Awake, Alert, Oriented x 3 HEENT: PERRL, EOMI, Sclera Non Icteric Neck: Supple, Good ROM, No Lymph Node Enlargement Lungs: Clear to auscultation Cardiovascular: Regular Rhythm, Normal S1, Normal S2, No Murmurs, No Rubs, No Gallops Vascular: No Carotid Bruits, Normal Femoral Pulses, Normal Radial Pulses, Normal Dorsalis Pedal Pulse, Normal Posterior Tibial Pulses Abdomen: Bowel Sounds Present, Soft, Non Tender, No HSM, No Organomegaly Extremities: No Cyanosis, No Clubbing, No edema Neurological: No Focal Motor or Sensory Deficit 11/10/17 05:20: WBC 7.0, RBC 4.44 L, Hgb 13.4, Hct 39.9 L, MCV 89.9, MCH 30.2, MCHC 33.6, RDW 13.4, RDW Differential 43.9, Plt Count 199, MPV 9.9, Immature Gran % (Auto) 0.700, Neut % (Auto) 51.6, Lymph % (Auto) 34.1, Chaves % (Auto) 9.3 , Eos % (Auto) 4.0, Baso % (Auto) 0.3, Absolute Neuts (auto) 3.6, Total Counted Not Reportable 11/10/17 05:20: PT 13.7, INR 1.1, APTT 34.3 11/10/17 05:20: Sodium 144, Potassium 4.1, Chloride 106, Carbon Dioxide 31.0, Anion Gap 7, BUN 13, Creatinine 1.25, Est GFR (MDRD) Af Amer 75, Est GFR (MDRD) Non-Af 62, BUN/Creatinine Ratio 10.4, Glucose 88, Calcium 8.6 Rhythm: EKG: ECHO: Stress Test: Cardiac Cath: PCI: CT Surgery: Holter monitor: EPS: PPM: CXR: Chest CT Scan: Medical Necessity - Tobacco Use Smoking Status: Current every day smoker Tobacco Use: Cigarettes Assessment/Plan 1. Chest discomfort with abnormal stress test. He presents with chest discomfort which is somewhat atypical but with an abnormal stress test. The stress test demonstrates evidence of previous infarct with possible mild ischemia. He underwent a cardiac catheterization which demonstrated the following: Normal left main coronary artery. Normal left anterior descending artery. Codominant circumflex artery with no significant disease. Codominant right coronary artery with no significant disease. Mild left ventricular systolic dysfunction. Based on the above angiographic findings the patient can be discharged for outpatient follow-up. No significant obstructive coronary disease is noted. 2. Hypertension. His blood pressure appears to be under fair control and we will continue managing him aggressively. He will continue for now on his beta-leatha diuretic as well as the [place] inhibitor. 3. Hyperlipidemia risk factor modification His most recent lipid profile on his high intensity statin demonstrates a total cholesterol 132, HDL of 48 and LDL of 68. We will continue to follow the above closely. Thank you for allowing me to participate in the care of your patient. Please don't hesitate to call if any issues arise
--- NOTE | 2017-11-10 08:37 | CL.D_ITS ---
Patient Name: JAY REYES Study Date: 11/10/2017 Performing: Oc Garcia MD Ht: 70 inches 178 cm : 1955 Wt: 245 lbs 111 kg Age: 62 Gender: male BSA: 2.28 PROCEDURE(S) PERFORMED PV83-[id number]/COR/LV CLINICAL PROFILE AND INDICATIONS Indications: Suspected CAD Heart Failure: None Stress/Imaging Stress/Image Study Performed: No Angina Classification Anginal Classification w/in 2 Weeks: No symptoms CAD Presentations: No Sxs, no angina. CONCLUSIONS Normal coronary arteries RECOMMENDATIONS Medical therapy DESCRIPTION OF PROCEDURE The patient arrived to the procedure lab. The risks and benefits of the procedure as well as a full d escription of our services here and current unavailability of surgical backup were fully explained to the patient and/or their significant other prior to the catheterization. The Timeout was completed, verifying the correct patient and procedure. The patient's procedural site was prepped and draped in the usual fashion. Local anesthetic was given subcutaneously to left groin region with Lidocaine 2%. Using a modified Seldinger technique, arterial access was obtained via the left femoral artery, a 5Fr sheath was inserted. Left Coronary Artery selective angiography was performed in multiple views usi ng a 5 Fr. JL4 catheter. Right Coronary Artery selective angiography was then performed in multiple v iews using a 5 Fr. 3DRC (Darshan) catheter. Left Ventriculography was performed in SIMONS projection us ing a 5 Fr. Pigtail catheter. LV to AO pullback pressures were then recorded.The arterial sheath was pulled and a Mynx closure device was deployed for hemostasis CORONARY ANGIOGRAPHY DOMINANCE: Co- Dominant LEFT HEART ASSESSMENT Left Ventricular Ejection Fraction: by LV Gram 45 % Global Hypokinesis - Mild Normal Left Ventricular systolic function Depressed Left Ventricular systolic function LEFT MAIN: Angiographically normal LEFT ANTERIOR DECENDING ARTERY: Angiographically normal CIRCUMFLEX ARTERY: Angiographically normal RIGHT CORONARY ARTERY: Angiographically normal COMPLICATIONS No Complications PROCEDURE MEDICATIONS Versed 1 mg IV Fentanyl 50 mcg IV Oxygen: 2 L/min via nasal cannula SUMMARY OF HEMODYNAMIC DATA Time AIR REST ECG 07:46:17 AO 145/87 (110) SA 08:04:08 LV 142/10, 19 08:11:13 LV 149/13, 18 08:11:19 LV 158/1, 18 08:12:16 LVp 162/2, 08:12:19 AOp 159/80 (108) 08:12:24 Signed By Oc Garcia MD On 11/10/2017 08:37:06 Oc Garcia MD
--- NOTE | 2017-11-10 09:21 | CASEMGMT ---
According to [facility] website, the following are in-network tertiary facilities: [facility], [facility], [facility], and . [facility]
[2017-11-10] MEDS: Acetaminophen 325 MG Tablet 650 MG PO (10:10)
[2017-11-10] MEDS: HYDROCHLOROTHIAZIDE 12.5 MG CAPSULE PO (10:11)
--- NOTE | 2017-11-10 12:09 | PCM.DC ---
- Discharge Diagnoses Current Active Problems: Current Active and Chronic Problems HTN (hypertension) (Chronic) Non-compliant behavior (Acute) COPD (chronic obstructive pulmonary disease) (Acute) Edema (Acute) Chest pain (Acute) You will use the following diet at home:: Cardiac - <2 grams sodium / day, low fat, low cholesterol Your food should be the consistency of: Regular Your liquids should be the consistency of: Regular/Thin Discharge Activity: Return to Normal Activity Allergies/Adverse Reactions: Allergies No Known Allergies Allergy (Verified 11/08/17 21:21) Medications to take at Discharge Aspirin E.C. [Ecotrin] 81 mg PO DAILY@0800 tablet 11/10/17 Atorvastatin Calcium 10 mg PO DAILY #30 tab 11/10/17 Hydrochlorothiazide 12.5 mg PO DAILY #30 cap 11/10/17 Levothyroxine [Synthroid] 50 mcg PO DAILY@0600 #30 tab 11/10/17 Lisinopril [Zestril] 20 mg PO DAILY #30 tab 11/10/17 Metoprolol Tartrate [Lopressor (beta leatha)] 12.5 mg PO BID #60 tab 11/10/17 The following prescriptions were given: Atorvastatin Calcium 10 mg PO DAILY #30 tab Hydrochlorothiazide 12.5 mg PO DAILY #30 cap Levothyroxine [Synthroid] 50 mcg PO DAILY@0600 #30 tab Lisinopril [Zestril] 20 mg PO DAILY #30 tab Metoprolol Tartrate [Lopressor (beta laetha)] 12.5 mg PO BID #60 tab Primary Care Physician: Care Physician,No Primary [Primary Care Provider] - Please follow up with your Primary Care Physician in: 1-2 weeks Please Follow Up With: Oc Garcia MD When: 2-3 week Proposed Discharge Date: 11/10/17
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
[2017-11-11 16:09] LABS: Thyroid Peroxidase AB 14 IU/mL (0-34)
[2017-11-12 14:54] LABS: Thyroglobulin Antibody < 1.0 IU/mL (0.0-0.9)
== END 2017-11-10 13:11 | disposition home or self-care (01) ==
PROVIDERS: Internal Medicine; Internal Medicine Cardiovascular Disease; Admitting Provider Internal Medicine; Visit Provider Internal Medicine
DX: R07.89 Other chest pain (principal); I10 Essential (primary) hypertension; E03.9 Hypothyroidism, unspecified; E66.9 Obesity, unspecified; J44.9 Chronic obstructive pulmonary disease, unspecified; M79.89 Other specified soft tissue disorders; D64.9 Anemia, unspecified; R60.0 Localized edema; M54.5 Low back pain; K40.90 Unilateral inguinal hernia, without obstruction or gangrene, not specified as recurrent; Z68.35 Body mass index [BMI] 35.0-35.9, adult; Z71.3 Dietary counseling and surveillance; Z87.891 Personal history of nicotine dependence; Z79.899 Other long term (current) drug therapy; Z91.14 Patient's other noncompliance with medication regimen; R94.39 Abnormal result of other cardiovascular function study; E78.5 Hyperlipidemia, unspecified
CPT/HCPCS: 36415; 71275; 78452; 80048; 80053; 80061; 83880; 84439; 84443; 84484; 85025; 85027; 85379; 85610; 85730; 86376; 86800; 93005; 93017; 93306; 93458; 93970; 96372; 96374; 97802; 99152; 99153; 99218; 99406; A9500; C1760; J7030; Q9957; Q9967; A4216; C1769; C8929; G0378; G0379; J1940; J2785

== ENCOUNTER 2017-12-05 20:57 | Emergency (ER) | payer MEDICAID, SELFPAY ==
[2017-12-05 20:59] VITALS: BP 144/90; PULSE 103; RESP 16; TEMP 36.2; O2SAT 96; BMI 35.9
[2017-12-05] MEDS: Furosemide 40 MG Tablet PO (21:19)
--- NOTE | 2017-12-05 21:29 | ED.VISSUMM ---
- ER Visit Summary Date of Service: 12/05/17 Chief Complaint: Bilateral lower extremity edema History of Present Illness: The patient is a 62 M resents to the emergency department with bilateral lower extremity edema. This is a chronic problem for the patient. He has had it intermittently for the past 6 months. He has been placed on hydrochlorothiazide with little improvement. The patient was admitted just under month ago with chest pain. He had an abnormal stress test and underwent heart catheterization. This was unremarkable. While in the hospital, the patient did have improvement of his leg swelling, but he states that because his legs were propped up I was not allowed to do anything anyways. The patient has been back at work and is on his feet daily. He states that the swelling has come back. He denies any pain. He denies any shortness of breath. Physical Examination: Vital signs reviewed General: Well-nourished, well-developed Head: Normocephalic, atraumatic Eyes: Pupils equal and reactive, extraocular muscles intact Neck, supple, no lymphadenopathy Heart: Regular rate and rhythm Respiratory: No distress, clear bilaterally Abdomen: Soft, nontender, nondistended, no peritoneal signs Back: Nontender Extremities: Nontender, 2+ symmetric edema, no cords Skin: Normal color no rash Neuro: Alert and oriented, no focal or lateralizing deficits Test Results: [] Emergency Department Course and Treatment: I did review the patient's prior hospitalization. His echo did show some mild diastolic dysfunction and minimally elevated pulmonary pressures. His heart cath was unremarkable. I do for the patient likely is chronic venous stasis and lower extremity edema. I doubt that this is because of acute CHF especially given his normal heart cath and absence of dyspnea. I am going to start the patient on a low-dose Lasix along with compression stockings. I do feel that this will improve his symptoms. The patient be discharged home. Treatment Plan: [] Disposition: Discharge Impression:. Lower extremity edema This note was generated with [employer] dictation software. It may contain incorrect words, spelling, and punctuation that were not noted in review of the chart prior to signing ED Disposition - Plan for ED Patient: Chief Complaint: Edema Instructions: ED Leg Swelling Bilateral Prescriptions: Compression Socks, Medium [Futuro Restoring] 2 ea MC DAILY #2 ea Furosemide [Lasix] 20 mg PO DAILY #30 tab Hydrocortisone 1% Crm [Hytone] 1 applic TOPICAL BID #1 tube Referrals: Care Physician,No Primary [Primary Care Provider] -
[2017-12-05 21:31] VITALS: BP 134/85; PULSE 94; RESP 18; O2SAT 96
== END 2017-12-05 21:38 | disposition home or self-care (01) ==
LOC: ED 21:27
PROVIDERS: Emergency Provider Emergency Medicine
DX: R60.0 Localized edema (principal); J44.9 Chronic obstructive pulmonary disease, unspecified; I10 Essential (primary) hypertension; E78.00 Pure hypercholesterolemia, unspecified; Z79.82 Long term (current) use of aspirin; Z79.899 Other long term (current) drug therapy; Z72.0 Tobacco use
CPT/HCPCS: 99283

== ENCOUNTER 2019-04-18 19:48 | Emergency (ER) | payer MEDICARE, SELFPAY ==
[2019-04-18 19:50] VITALS: BP 188/90; PULSE 91; RESP 20; TEMP 36.6; O2SAT 98; BMI 33.7
[2019-04-18 20:00] VITALS: RESP 18
--- NOTE | 2019-04-18 20:09 | US_ITS ---
STUDY: SCROTUM ULTRASOUND REASON FOR EXAM: Male, 63 years old. Right scrotal pain and swelling TECHNIQUE: Ultrasound evaluation of the scrotum was performed with color Doppler and static ba-scale imaging. COMPARISON: None. FINDINGS: RIGHT TESTICLE INTRATESTICULAR: There is a normal size of the right testicle. The right testicle measures 3.9 x 2.6 x 2 cm. There is a homogenous echotexture. There is normal arterial and normal venous vascularity. Tiny cyst measuring 3 x 4 x 2 mm. There is a solitary microcalcification EXTRATESTICULAR: The epididymis is normal in size. The epididymis head measures 1.2 x 1.1 x 0.9 cm. There is normal vascularity of the epididymis. There is no demonstrated epididymal cystic structure. Moderate-sized complex hydrocele.. There is no demonstrated varicocele. There is no demonstrated extratesticular mass or cyst. LEFT TESTICLE INTRATESTICULAR: There is a normal size of the left testicle. The left testicle measures 4.2 x 2.6 x 1.6 cm. There is a homogenous echotexture. There is normal arterial and normal venous vascularity. There are tiny cysts measuring 3 x 4 x 2 mm and 2 x 2 by 2 mm. There is a solitary microcalcification EXTRATESTICULAR: The epididymis is normal in size. The epididymis head measures 1 x 1.4 x 1.4 cm. There is normal vascularity of the epididymis. There is no demonstrated epididymal cystic structure. There is moderate-sized hydrocele There is no demonstrated varicocele. There is no demonstrated extratesticular mass or cyst. US/Testicular with Arterial Flow IMPRESSION: No evidence for testicular torsion. Tiny bilateral testicular cysts. . Moderate-sized hydroceles bilaterally which appears complex on the right possibly hemorrhagic or inflammatory. Clinical correlation recommended Electronically Signed: Breezy Barrera MD at 20:58 EDT , Service support ,
[2019-04-18 21:03] LABS: Bacteria 0 SEEN /hpf (None Seen); Red Blood Cells-Urine 0 SEEN /hpf (0-5)
[2019-04-18 21:04] LABS: Color, Urine Yellow (Yellow); Glucose, Dipstick Normal (Normal); Ketone-Dipstick 5 mg/dl (Negative); Leukocyte Esterase-Dipstick 25 /ul (Negative); Nitrite-Dipstick Negative (Negative); Occult Blood-Urine Negative /ul (Negative); Protein-Dipstick 15 mg/dl (Negative); Urine Bilirubin Dipstick Negative (Negative); Urine Clarity Sl. Cloudy (Clear); Urine Urobilinogen 1 mg/dl (Normal)
[2019-04-18 21:10] LABS: Mucous, Urine 3+ /hpf (<or=2+); White Blood Cells 5-10 SEEN /hpf (0-5)
[2019-04-18 21:11] LABS: Squamous Epithelial Cells - UA 0-5 SEEN /hpf (0-5)
--- NOTE | 2019-04-18 21:49 | ED.DCSUM_ITS ---
- ER Visit Summary Date of Service: 04/18/19 Chief Complaint: [Right testicle pain] History of Present Illness: The patient is a 63 M [presents to the emergency department with discomfort to his right testicle that has had off-and-on for over a year. Today he lifted a battery and noted a discomfort in his right testicle and noted that it was more swollen and more painful than usual. Patient also had a twinge of pain into his lower abdomen and into his back. He denies any fever. Denies vomiting. Denies dysuria. Patient states that he had an ultrasound of his testicle about a year ago or so and followed up with a specialist and was told he might need to have surgery but it was opted not to have surgery. She is somewhat of a poor informant.] Physical Examination: [HEENT-PERRLA, TIPMI. Cranial nerves II through XII grossly intact. TMs clear. Mucous membranes moist. No adenopathy. Cardiovascular-regular rate and rhythm without murmur or ectopy Lungs-clear to auscultation, chest wall stable without crepitus or subcu emphysema Abdomen-normoactive bowel sounds, soft, nontender, no rebound or rigidity, no peritoneal signs. exam-patient does have tenderness over the right epididymis and he appears to have a hydrocele. Testicle itself is nontender and no masses palpated. Patient has normal cremasteric reflex. Patient is not circumcised. Extremities-intact ?4, normal range of motion, normal pulses, atraumatic] Test Results: [Urinalysis was unremarkable. Ultrasound of the testicle obtained showed moderate sized bilateral hydroceles right side being complex with possible hemorrhage or inflammation.] Emergency Department Course and Treatment: [Patient was started on Bactrim at the request of urology. Urologist recommended outpatient follow-up for possible evaluation for surgical intervention.] Treatment Plan: [We will up with urology. Patient will be given a prescription for naproxen as well as [place] and Bactrim] Disposition: [Discharged home in stable condition] Impression: [Complex right hydrocele] This note was generated with [employer] dictation software. It may contain incorrect words, spelling, and punctuation that were not noted in review of the chart prior to signing ED Disposition - Plan for ED Patient: Referrals: Care Physician,No Primary [Primary Care Provider] -
--- NOTE | 2019-04-18 21:52 | DCINST.ED_ITS ---
ED Disposition - Plan for ED Patient: Instructions: Hydrocele Surgery (Hydrocelectomy), HYDROCELE, Type Not Specified Prescriptions: Smz/Tmp Ds [Bactrim Ds] 1 tab PO BID #20 tab Prescription Printed Naproxen [Naprosyn] 500 mg PO BID PRN #20 tab Prescription Printed Hydrocodone Bitart/Apap 5-325 [[place] 5MG-325MG] 1 tab PO Q4H PRN PRN 2 Days #10 tab PRN Reason: Pain Prescription Printed Referrals: Care Physician,No Primary [Primary Care Provider] - Martir Vázquez MD [STAFF PHYSICIAN] - 3-5 Days
[2019-04-18] MEDS: Smz/Tmp Ds Tablet 1 TABLET PO (21:59)
[2019-04-18 22:00] VITALS: RESP 18
== END 2019-04-18 22:02 | disposition home or self-care (01) ==
PROVIDERS: Emergency Provider Emergency Medicine
DX: N43.3 Hydrocele, unspecified (principal); Z87.891 Personal history of nicotine dependence
CPT/HCPCS: 76870; 81001; 93976; 99283

== ENCOUNTER 2020-06-10 17:46 | Emergency (ER) | payer MEDICARE, MEDICAID, SELFPAY ==
[2020-06-10 17:47] VITALS: BP 169/86; PULSE 89; RESP 20; TEMP 36.4; O2SAT 98; BMI 35.4
--- NOTE | 2020-06-10 18:05 | US_ITS ---
STUDY: SCROTUM ULTRASOUND REASON FOR EXAM: Male, 64 years old. Right testicular pain TECHNIQUE: Ultrasound evaluation of the scrotum was performed with color Doppler and static ba-scale imaging. COMPARISON: 04/18/2019 FINDINGS: RIGHT TESTICLE INTRATESTICULAR: There is a normal size of the right testicle. The right testicle measures 4.0 x 2.0 x 2.8 cm. There is a homogenous echotexture. There are few punctate calcifications within the right testicle. There is normal arterial and normal venous vascularity. There is a minimally complex cystic focus that has increased in size since the prior examination testis measuring 4.8 x 3.0 x 2.9 mm and contains a septation; previously measuring 3 x 4 x 2 mm. The cystic focus is peripherally located and abuts the mediastinum. EXTRATESTICULAR: The epididymis is normal in size. There is normal vascularity of the epididymis. There is no demonstrated epididymal cystic structure. There is a moderate hydrocele. There is no demonstrated varicocele. There is no demonstrated extratesticular mass or cyst. LEFT TESTICLE INTRATESTICULAR: There is a normal size of the left testicle. The left testicle measures 3.6 x 2.5 x 2.9 cm. There are a few calcifications within the left testicle. There is a homogenous echotexture. There is normal arterial and normal venous vascularity. There is a 3.8 x 3.3 x 4.2 simple cyst within the peripheral left testicle abutting the mediastinum testis previously measuring 3.3 x 2.1 x 3.8 mm. There are 2 adjacent cysts that are new one measuring 2.6 x 1.8 x 2.5 mm. There is an additional smaller grossly stable appearing cyst within the left testicle. EXTRATESTICULAR: The epididymis is normal in size. There is normal vascularity of the epididymis. There is no demonstrated epididymal cystic structure. There is a small hydrocele. There is no demonstrated varicocele. There is no demonstrated extratesticular mass or cyst. US/Testicular with Arterial Flow IMPRESSION: Interval enlargement of bilateral intratesticular cysts associated with new cysts within the left testicle. Microlithiasis. Bilateral hydroceles, right greater than left. Electronically Signed: Yojana Brown MD at 20:35 EST Tel , Service support ,
--- NOTE | 2020-06-10 18:05 | CT_ITS ---
STUDY: CT ABDOMEN AND PELVIS WITHOUT CONTRAST REASON FOR EXAM: Male, 64 years old. TESTICULAR PAIN/RT GREATER THAN LEFT/DIFFICULTY URINATING. Hx of kidney stones, HTN, COPD, emphysema, CT and heart stent RADIATION DOSAGE (If Supplied By Facility): CTDIvol = ( 12.66 ) mGy, DLP = ( 1325.35 ) mGycm TECHNIQUE: Transaxial images were obtained from the dome of the diaphragm to the symphysis pubis without oral contrast, and without intravenous contrast. Sagittal and coronal images were reconstructed. Individualized dose optimization techniques were used for this CT. COMPARISON: 07/05/2017 FINDINGS: There is a granuloma within the right lower lobe. The visualized portions of the heart are within normal limits. The lack of intravenous contrast limits the evaluation of solid visceral organs. Normal liver. There are gallstones within the gallbladder. Normal spleen. Normal pancreas. Normal bilateral adrenal glands. There is stable perinephric stranding. There is no hydronephrosis. Normal visualized stomach. Normal small intestine. There are scattered diverticula arising from the colon. The appendix is visualized and appears normal. There is diffuse atherosclerotic calcification of the abdominal aorta, without a demonstrated aneurysm. Normal inferior vena cava. Normal retroperitoneum. Normal urinary bladder. There is a stable fat-containing umbilical hernia. There are diffuse degenerative changes of the visualized lumbar spine. CT/Abdomen/Pelvis without Cont IMPRESSION: No acute intra-abdominal process. Cholelithiasis. Atherosclerosis. Fat-containing umbilical hernia. Colonic diverticulosis. Electronically Signed: Yojana Brown MD at 19:37 EST Tel , Service support ,
--- NOTE | 2020-06-10 18:06 | ED.DCSUM_ITS ---
History of Present Illness Chief Complaint: Male Pain/Injury Narrative: Patient is a 64-year-old male who presents with multiple complaints. He is a poor informant. He states he has had problems with his right testicle for years. He has been seen twice in the emergency department and had testicular ultrasound. He was put on antibiotics. On review of records on both prior occasions he was referred to urology for follow-up for a complex right hydrocele. He never followed up. He states that he has continued to have right testicular pain. However he complains of a [id number] and burning sensation across his lower abdomen which has now worsened and involves his entire abdomen. This has been for the past week but worse today. He also states that it feels like he is incompletely emptying his bladder. No fevers. No abdominal pain. No abdominal surgeries. Patient has no known medical history but does not see a physician. Past Medical History - Allergies and Home Meds Allergies/Adverse Reactions: Allergies No Known Allergies Allergy (Verified 06/10/20 17:50) Primary Care Physician: Care Physician,No Primary [Primary Care Provider] - Past Medical History: None Surgical History: no surgical history Smoking Status: Former smoker Review of Systems All systems negative except as indicated General: Denies: Fever Eyes: Denies: Visual changes - bilaterally ENT: Denies: Bilateral ear pain Cardiovascular: Denies: Chest pain Respiratory: Denies: Dyspnea Gastrointestinal: Reports: Abdominal pain. Denies: Nausea, Vomiting, Diarrhea Genitourinary: Reports: - - Bilateral testicular pain right greater than left. Denies: Dysuria, Frequency Skin: Denies: Rash Neurological: Denies: Headache Allergy: Denies: Uticaria Physical Exam Vital Signs/Narrative: Vital Signs Temp Pulse Resp BP Pulse Ox 06/10/20 17:47 97.6 F L 89 20 H 169/86 H 98 Inital Vital Signs reviewed: Yes General: Well nourished Head: Normocephalic Eyes: EOMI ENT: Moist mucous membranes Neck: Supple Cardiovascular: Regular rate, Regular rhythm Respiratory: No distress, CTA bilaterally Abdomen: Soft, - - Patient has mild diffuse nonfocal abdominal tenderness he has a reducible umbilical hernia : - - Normal inspection no testicular tenderness no scrotal erythema Skin: Normal color Neurological: Alert Psychological: Normal affect Diagnostic/Tx/Re-eval Impressions Abdomen/Pelvis CT 06/10/20 18:05 IMPRESSION: No acute intra-abdominal process. Cholelithiasis. Atherosclerosis. Fat-containing umbilical hernia. Colonic diverticulosis. Electronically Signed: Yojana Brown MD at 19:37 EST Tel , Service support , Testicular Ultrasound 06/10/20 18:05 IMPRESSION: Interval enlargement of bilateral intratesticular cysts associated with new cysts within the left testicle. Microlithiasis. Bilateral hydroceles, right greater than left. Electronically Signed: Yojana Brown MD at 20:35 EST Tel , Service support , 06/10/20 18:05 Abdomen/Pelvis without Cont [CT] Stat Testicular with Arterial Flow [US] Stat Laboratory Results 06/10/20 06/10/20 06/10/20 18:10 18:10 19:45 WBC 9.7 RBC 5.00 Hgb 14.7 Hct 45.5 MCV 91.0 MCH 29.4 MCHC 32.3 RDW Std Deviation 45.1 H RDW Coeff of Emi 13.5 Plt Count 253 MPV 9.3 Immature Gran % (Auto) 0.700 Neut % (Auto) 64.0 Lymph % (Auto) 22.5 Sweet Grass % (Auto) 9.3 Eos % (Auto) 3.1 Baso % (Auto) 0.4 Absolute Neuts (auto) 6.2 Absolute Lymphs (auto) 2.18 Nucleated RBC % 0 Sodium 144 Potassium 4.4 Chloride 113 H Carbon Dioxide 26.0 Anion Gap 5 BUN 17 Creatinine 1.13 Estim Creat Clear Calc 64.30 Est GFR (MDRD) Af Amer 83 Est GFR (MDRD) Non-Af 69 BUN/Creatinine Ratio 15.0 Glucose 121 H Calcium 8.3 L Total Bilirubin 0.20 AST 14 L ALT 25 Alkaline Phosphatase 94 Total Protein 7.1 Albumin 3.5 Globulin 3.6 Albumin/Globulin Ratio 1.0 Lipase 144 Urine Color Yellow Urine Clarity Sl. Cloudy Urine pH 5.0 Ur Specific Rewey 1.020 Urine Protein 15 H Urine Glucose (UA) Normal Urine Ketones Negative Urine Occult Blood 150 H Urine Nitrite Negative Urine Bilirubin Negative Urine Urobilinogen Normal Ur Leukocyte Esterase 100 H Urine RBC 10-25 SEEN Urine WBC 10-25 SEEN Ur Squamous Epith Cells 0-5 SEEN Urine Bacteria 1+ Urine Mucus 0 SEEN - Medical Decision Making Laboratory studies notable for pyuria on urinalysis. Serum laboratory studies are unremarkable. Testicular ultrasound shows bilateral intratesticular cysts and bilateral hydroceles. CT the abdomen and pelvis shows no acute intra- abdominal process. We will treat with oral antibiotics for UTI. Patient was again referred to urology and I stressed the importance of outpatient follow-up. He does understand to return for new or worsening symptoms and the patient was discharged. ED Disposition - Plan for ED Patient: Disposition: Home or Assisted Living Diagnosis: Testicular cyst, Hydrocele, UTI (urinary tract infection), Abdominal pain Instructions: ED Hydrocele, Type Not Specified Prescriptions: Ciprofloxacin [Cipro] 500 mg PO BID #14 tab Prescription Printed Referrals: Care Physician,No Primary [Primary Care Provider] - Martir Vázquez MD [STAFF PHYSICIAN] - Additional Instructions: Your ultrasound showed cysts both inside your testicles as well as hydroceles. It is very important that you follow-up with urology. Take all antibiotics as prescribed. Return for any new or worsening symptoms.
[2020-06-10 18:22] LABS: Absolute Lymphocyte Count 2.18 X10^3/uL (0.83-4.51); Absolute Neutrophil Count 6.2 X10^3/uL (2.0-7.7); Basophil# 0.04 X10^3/uL; Basophil% 0.4 % (0-1); Eosinophils% 3.1 % (0-5); Hematocrit 45.5 % (40-54); Hemoglobin 14.7 g/dL (13.0-16.5); Lymphocyte # 2.18 X10^3/ul (4.0); Lymphocyte % 22.5 % (19-41); Mean Corp Hgb Conc 32.3 g/dL (32-36); Mean Corpuscular Hgb 29.4 pg (27.0-32.0); Mean Platelet Vol. 9.3 fl (6.2-12.0); Monocyte% 9.3 % (0-10); NRBC Flagged by Analyzer 0 % (0-5); Neutrophil # 6.19 X10^3/uL (2.7-7.7); Platelet Count 253 K/mm3 (150-450); RBC Distribution Width CV 13.5 % (11.6-14.6); RBC Distribution Width SD 45.1 fl (35.1-43.9); White Blood Count 9.7 K/mm3 (4.4-11.0)
[2020-06-10 18:35] LABS: AST(SGOT) 14 U/L (15-37); Alanine Aminotransfer ALT/SGPT 25 U/L (16-61); Albumin, Serum 3.5 g/dL (3.2-5.0); Alkaline Phosphatase 94 U/L (45-117); Anion Gap 5 (5-15); BUN 17 mg/dL (7-18); Calcium,Total 8.3 mg/dL (8.5-10.1); Chloride 113 mmol/L (98-107); Creatinine, Serum 1.13 mg/dL (0.70-1.30); EST Glomerular Filtration Rate 69 mL/min (>60); Est Glom Filt Rate - Afr Amer 83 mL/min (>60); Globulin 3.6 g/dL (2.2-4.2); Glucose 121 mg/dL (74-106); Lipase 144 U/L (73-393); Potassium 4.4 mmol/L (3.5-5.1); Protein, Total 7.1 g/dL (6.4-8.2); Sodium Level 144 mmol/L (136-145)
[2020-06-10 19:47] VITALS: BP 151/81; PULSE 81; RESP 18; O2SAT 98
[2020-06-10 19:52] LABS: Mucous, Urine 0 SEEN /hpf (<or=2+)
[2020-06-10 20:18] LABS: Color, Urine Yellow (Yellow); Glucose, Dipstick Normal (Normal); Ketone-Dipstick Negative (Negative); Leukocyte Esterase-Dipstick 100 /ul (Negative); Nitrite-Dipstick Negative (Negative); Occult Blood-Urine 150 /ul (Negative); Protein-Dipstick 15 mg/dl (Negative); Urine Bilirubin Dipstick Negative (Negative); Urine Clarity Sl. Cloudy (Clear); Urine Urobilinogen Normal (Normal)
[2020-06-10 20:22] LABS: Bacteria 1+ /hpf (None Seen); Red Blood Cells-Urine 10-25 SEEN /hpf (0-5); Squamous Epithelial Cells - UA 0-5 SEEN /hpf (0-5); White Blood Cells 10-25 SEEN /hpf (0-5)
[2020-06-10 20:49] VITALS: BP 150/83; RESP 17
== END 2020-06-10 20:52 | disposition home or self-care (01) ==
PROVIDERS: Emergency Provider Emergency Medicine
DX: N44.2 Benign cyst of testis (principal); N43.3 Hydrocele, unspecified; N39.0 Urinary tract infection, site not specified; I10 Essential (primary) hypertension; Z87.891 Personal history of nicotine dependence
CPT/HCPCS: 74176; 76870; 80053; 81001; 83690; 85025; 93976; 99283; A4216